=== PATIENT | female | born 1955 | race Caucasian/White ===

== ENCOUNTER → 2022-04-18 12:40 | Outpatient (REF) | payer OTHER, SELFPAY | LOC: HO.SL 12:40 | PROVIDERS: PCP Internal Medicine; Visit Provider Nurse Practitioner Family | DX: R06.83 Snoring (principal); R40.0 Somnolence | CPT/HCPCS: 95806 ==

== ENCOUNTER → 2022-10-09 13:53 | Outpatient (BNVA) | payer OTHER, SELFPAY | PROVIDERS: PCP Internal Medicine; Visit Provider Nurse Practitioner Family | DX: R41.3 Other amnesia (principal); R41.89 Other symptoms and signs involving cognitive functions and awareness; R53.83 Other fatigue ==

== ENCOUNTER → 2022-11-24 09:28 | Outpatient (BNVA) | payer OTHER, SELFPAY | PROVIDERS: PCP Internal Medicine; Visit Provider Nurse Practitioner Family | DX: R41.3 Other amnesia (principal); R41.89 Other symptoms and signs involving cognitive functions and awareness; R53.83 Other fatigue ==

== ENCOUNTER 2023-07-26 13:54 | Outpatient (AMB) | payer OTHER, SELFPAY ==
--- NOTE | 2023-07-26 13:57 | MHC.OFFVIS ---
Intake Vital Signs 07/26/23 14:03 Height 4 ft 10 in Weight 144 lb 2 oz BMI 30.1 BP 130/80 Blood Pressure Location Lt brachial Position Sitting Pulse 84 Pulse Source Pulse Oximeter Pulse Oximetry (%) 95 Oxygen Delivery Method Room Air Intake Visit Reasons: Follow up- Sleep/Memory - CONF Intake Note: Patient presents for f/u memory is getting worse and sleep has improve. Allergies No Known Allergies Allergy (Verified 07/26/23 14:01) HPI HPI Comments History of Present Illness Details 67 y/o female patient presents for follow up of memory loss and depression. Pt reports that she sleeps much better with magnesium 400 mg qHS. She does not get tensed during the night and sleeps about 8 hours and rested well. Pt feels memory declined and having difficulty concentrating, She keeps forgetting what the word she try to say. 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 Pt reports that citalopram 20 mg helped a lot to manage depression. She can force herself to do activity. She walks her dog daily and can do more physical activity.? [facility] Surgical History History of surgical removal of pilonidal cyst History of subtotal thyroidectomy History of 2 sections Family History Mother Diabetes Father Diabetes Maternal Grandmother Diabetes Blindness Macular ischemia Maternal Grandfather Diabetes Paternal Grandmother Diabetes Paternal Grandfather Diabetes Social History Household Members: Family Alcohol intake: current Alcohol intake frequency: holidays/special occasions only Patient Tobacco Use Status: Former Tobacco user Years Smoked: 40 e-Cigarette/Vaping Use: Currently Using Review of Systems Const All systems reviewed & are unremarkable except as noted in HPI and below ENT Reports Normal hearing present Neuro Reports Normal hearing present Physical Exam Vital Signs: Last Vital Signs Pulse 84 07/26/23 14:03 BP 130/80 07/26/23 14:03 Pulse Ox 95 07/26/23 14:03 Oxygen Delivery Method Room Air 07/26/23 14:03 BMI result Body Mass Index 30.1 Const General: cooperative and comfortable Nutritional Appearance: obese Orientation/consciousness: patient oriented x3 Resp Effort & Inspection: normal respiratory effort and able to speak in complete sentences Neuro General: patient oriented x3 and gait normal Cranial nerves: Yes Bilaterally intact EOM present, Yes Normal facial strength present, Yes Midline tongue present, Yes Symmetric palate elevation present, Yes Normal hearing present, Yes Ability to bilaterally rotate head present and Yes Ability to bilaterally elevate shoulders present Cognition (Neuro): normal cognition Gait exam (Neuro): Normal gait present Motor exam (neuro): 5/5 motor strength present throughout and Pronator motor function not present Psych Appearance: grossly normal Mental Status: mental status grossly normal Speech and movement: Normal speech and movement present Assessment & Plan Assessment & Plan (1) Depression: Code(s): F32.A - Depression, unspecified (2) Memory loss: Code(s): R41.3 - Other amnesia (3) Cognitive impairment: Code(s): R41.89 - Other symptoms and signs involving cognitive functions and awareness (4) Fatigue: Code(s): R53.83 - Other fatigue Plan Continue to take citalopram to 20 mg daily to manage depression. Continue magnesium 400 mg q HS to help to relieve tense and legs cramping. Encouraged patient to manage diet and increase physical activity to manage blood sugar. Continue to engaging in cognitive activity. Refer patient to neuropsychology evaluation. Orders: Referrals Neuropsychiatry Referral R41.3 - Other amnesia, R41.89 - Other symptoms and signs involving cognitive functions and awareness Medications: Changed From magnesium oxide 400 mg PO DAILY 30 days 30 tabs 4RF To magnesium oxide 400 mg PO DAILY 90 tabs 4RF 90 days From citalopram 20 mg PO DAILY 30 days 30 tabs 4RF To citalopram 20 mg PO DAILY 90 tabs 4RF 90 days From cholecalciferol (vitamin D3) 50 mcg PO DAILY 30 days 30 caps 2RF To cholecalciferol (vitamin D3) (Vitamin D3) 50 mcg PO DAILY 90 caps 4RF 90 days Coding Level of Care Code Est Pt Level 4 (60229) Diagnoses Depression F32.A Memory loss R41.3 Cognitive impairment R41.89 Fatigue R53.83
[2023-07-26 14:03] VITALS: BP 130/80; PULSE 84; O2SAT 95; BMI 30.1
== END 2023-07-26 14:35 | disposition home or self-care (01) ==
PROVIDERS: PCP Internal Medicine; Visit Provider Nurse Practitioner Family
DX: F32.A Depression, unspecified (principal); R41.3 Other amnesia; R41.89 Other symptoms and signs involving cognitive functions and awareness; R53.83 Other fatigue
CPT/HCPCS: 99214

== ENCOUNTER → 2023-07-26 13:54 | Outpatient (BNVA) | payer OTHER, SELFPAY | PROVIDERS: PCP Internal Medicine; Visit Provider Nurse Practitioner Family ==

== ENCOUNTER 2024-04-10 12:25 | Outpatient (AMB) | payer OTHER, SELFPAY ==
--- NOTE | 2024-04-10 12:30 | MHC.OFFVIS ---
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 Required: No Accompanied by: Self / Same As Patient Allergies No Known Allergies Allergy (Verified 04/10/24 12:32) Medication List - Last Reconciled 04/10/24 by Prabha Gonzales MD alendronate (Fosamax) 70 mg PO QWEEK aspirin 81 mg PO DAILY atenolol 25 mg PO DAILY blood sugar diagnostic (FreeStyle Lite Strips) As directed cholecalciferol (vitamin D3) (Vitamin D3) 50 mcg PO DAILY 90 days citalopram 20 mg PO DAILY 90 days magnesium oxide 400 mg PO DAILY 90 days metformin 1,000 mg PO DAILY simvastatin 20 mg PO BEDTIME tolterodine ER 4 mg PO DAILY HPI Comments Details: 68 y/o female patient presents for follow up of cognitive issues.she feels her memory is worse. 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 she forgets conversations , words etc. she sleeps good now. she has depression- does not have a therapist - on waiting list now. Pt reports that she sleeps much better with magnesium 400 mg qhs and feels rested when she wakes up. Pt reports that citalopram 20 mg helped a lot to manage depression. She walks her dog daily and can do more physical activity.? [facility] Medical History (Updated 04/10/24 @ 12:48 by Prabha Gonzales MD) Diabetes Surgical History History of surgical removal of pilonidal cyst History of subtotal thyroidectomy History of 2 sections Family History Mother Diabetes Father Diabetes Maternal Grandmother Diabetes Blindness Macular ischemia Maternal Grandfather Diabetes Paternal Grandmother Diabetes Paternal Grandfather Diabetes Social History Household Members: Family Alcohol intake: current Alcohol intake frequency: holidays/special occasions only Patient Tobacco Use Status: Former Tobacco user Years Smoked: 40 e-Cigarette/Vaping Use: Currently Using Review of Systems ENT Reports Normal hearing present Neuro Reports Normal hearing present Physical Exam Vital Signs: Last Vital Signs Pulse 64 04/10/24 12:33 BP 138/70 04/10/24 12:33 Pulse Ox 96 04/10/24 12:33 Oxygen Delivery Method Room Air 04/10/24 12:33 BMI result Body Mass Index 33.0 Const General: cooperative and comfortable Nutritional Appearance: obese Orientation/consciousness: patient oriented x3 Resp Effort & Inspection: normal respiratory effort and able to speak in complete sentences Neuro General: patient oriented x3 and gait normal Cranial nerves: Yes Bilaterally intact EOM present, Yes Normal facial strength present, Yes Midline tongue present, Yes Symmetric palate elevation present, Yes Normal hearing present, Yes Ability to bilaterally rotate head present and Yes Ability to bilaterally elevate shoulders present Cognition (Neuro): normal cognition Gait exam (Neuro): Normal gait present Motor exam (neuro): 5/5 motor strength present throughout and Pronator motor function not present Psych Appearance: grossly normal Mental Status: mental status grossly normal Speech and movement: Normal speech and movement present Orientation What is the (year) (season) (date) (day) (month)?: year, season, date, day and month Where are we (state) (county) (town or city) (hospital) (floor)?: state, county, town or city, hospital/clinic and floor Registration Name of 3 unrelated objects clearly and slowly, then ask patient to repeat all 3 of them. (1st repeat determines score. Make sure they can repeat all three): object 1, object 2 and object 3 Attention & Calculation (CHOOSE ONE) Spell WORLD backwards (DLROW): 5 letters Recall Ask patient to repeat the 3 items from question #3.: object 1 and object 3 Language Show patient a wristwatch & ask what it is. Repeat for pencil.: watch and pencil Ask the patient to repeat the phrase 'No ifs, ands, or buts' after you.: correct Ask the patient to 'take a piece of paper with their right hand' 'fold paper in half' 'place paper on floor': take paper in right hand, fold paper in half and place paper on floor Print the sentence 'CLOSE YOUR EYES' on a piece. If patient actually closes eyes then score.: followed written direction Give patient a blank piece of paper & ask to write a sentence. Score if it contains a noun & verb.: sentence contains subject and verb Ask patient to copy figure of intersecting pentagons exactly. Score if all 10 angles & 2 intersects are included.: all 10 angles present & 2 are intersected Score Score: 29 Assessment & Plan Assessment & Plan (1) Cognitive impairment: Comment: did well on MMSE today - likely related to mood Code(s): R41.89 - Other symptoms and signs involving cognitive functions and awareness Category: Medical (2) Depression: Code(s): F32.A - Depression, unspecified Category: Medical Qualifiers: Depression Type: other depression Qualified Code(s): F32.89 - Other specified depressive episodes Plan Increase citalopram to 30 mg daily to manage depression. Continue magnesium 400 mg q HS to help to relieve tense and legs cramping. Encouraged patient to manage diet and increase physical activity to manage blood sugar. Continue to engaging in cognitive activity. cognitive therapy Orders: Referrals Speech and Hearing Referral R41.89 - Other symptoms and signs involving cognitive functions and awareness Medications: Changed From citalopram 20 mg PO DAILY 90 days 90 tabs 4RF To citalopram 30 mg (1.5 x 20 mg) PO DAILY 90 days 135 tabs 4RF Coding Level of Care Code Est Pt Level 4 (32179) Complex EM visit Add On G2211 Diagnoses Cognitive impairment R41.89 Other depression F32.89 Depression Type: other depression
[2024-04-10 12:33] VITALS: BP 138/70; PULSE 64; O2SAT 96; BMI 33.0
== END 2024-04-10 12:50 | disposition home or self-care (01) ==
PROVIDERS: PCP Internal Medicine; Visit Provider Psychiatry & Neurology Neurology
DX: R41.89 Other symptoms and signs involving cognitive functions and awareness (principal); F32.89 Other specified depressive episodes
CPT/HCPCS: 99214

== ENCOUNTER → 2024-04-10 12:25 | Outpatient (BNVA) | payer OTHER, SELFPAY | PROVIDERS: PCP Internal Medicine; Visit Provider Psychiatry & Neurology Neurology ==

== ENCOUNTER 2024-11-19 12:45 | Outpatient (RCR) | payer OTHER, SELFPAY ==
--- NOTE | 2024-11-27 13:49 | MHC.SP.ADU ---
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 Gonzales from the Neurology and Sleep office for concerns of cognitive impairment and memory loss. Grace reports having issues with her memory which seem to be getting worse. Grace also reports frequently having trouble finding words and following directions, with occasional difficulty expressing her thoughts, problem solving, being understood by others, and maintaining topic of conversation. Grace reports she puts things down and forgets right away where she put them down and forgets conversations that have happened. 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 She says she forgets a patient?s date of or medical record number when switching from one screen to another on the computer. She also pulls a chart and forgets what she pulled it for. Grace does not believe she has ever had any brain imaging done. Grace also reports having trouble swallowing, which has progressively gotten worse over time. She reports episodes up to 3 times a week, feeling like food gets stuck in her throat. In one instance, she felt that she could not breathe and her daughter had to perform the Heimlich on her. Grace says she has not had any workup for her swallow. Grace completed some college. She denies ever having to repeat a grade or having any special education accommodations in school. Grace says she had a hearing test about 10 years ago and was told she did not have any hearing loss. Grace reports she has had trouble hearing things correctly and will hear a word that was not a word the person said. Grace lives alone in a private residence, is , and has 2 adult children which do not live in the home. Per Dr. Gonzales, Grace performed well on the Mini Mental State Examination (MMSE) Medical History: Other: Medical History (Updated 04/10/24 @ 12:48 by Prabha Gonzales MD) Diabetes Surgical History History of surgical removal of pilonidal cyst History of subtotal thyroidectomy History of 2 sections Assessment Tests of Cognition: RBANS Clinical Impression: Intact Observations: Grace?s cognitive linguistic skills were evaluated using the RBANS: The Repeatable Battery for the Assessment of Neuropsychological Status (RBANS-Updated Form A). The RBANS assesses aspects of cognitive memory, language, and attention skills. The RBANS is considered a screening battery for cognitive function used with adolescents and adults, ages 12 to 89 years. Composite domains assessed in this evaluation are: Immediate Memory, Visuospatial/Constructional, Language, Attention, and Delayed Memory. Assessed domains and their scores are summarized below: IMMEDIATE MEMORY: These subtests assess an individual?s ability to remember a small amount of information immediately after it is presented. Grace was presented with a list of 10 random words and was instructed to repeat back as many words as she could remember from the list (List Learning). She initially recalled 4 items from the list of 10. On each subsequent repetition, she recalled up to 6 items on the list, indicating that verbal repetition improves her recall. After listening to a spoken paragraph, Grace was instructed to re-tell the story with as much detail as she could remember (Story memory). She performed well on this task and was able to recall dates, locations, and other specific details. List Learning Total Score: 21 Scaled Score: 5 Percentile Rank: 5% Interpretation: Borderline Story Memory Total Score: 18 Scaled Score: 11 Percentile Rank: 63% Interpretation: Average Immediate Memory Index score: 87 Percentile Rank: 19% Interpretation: Low Average VISUOSPATIAL/CONSTRUCTIONAL: These subtests assess an individual?s visuospatial skills and perception of spatial relationships. Grace was first instructed to draw an accurate copy of a figure presented to her (Figure Copy) and then to identify lines that matched based on orientation and placement (Line Orientation). She exhibited no difficulty completing these tasks and denies any visual deficits. Figure Copy Total Score: 20 Scaled Score: 14 Percentile Rank: 91% Interpretation: Superior Line Orientation Total Score: 17 Percentile Group: 51-75 Interpretation: Average Visuospatial/Constructional Index score: 112 Percentile Rank: 79% Interpretation: High Average LANGUAGE: These subtests assess an individual?s word retrieval skills. Grace correctly named line images in 9 out of 10 trials during a confrontational naming task (Picture Naming). No hesitancies or paraphasias were observed with confrontational naming and throughout conversational speech. She did not name target item ?clothespin,? however, was able to describe its function, stating, ?You use it to hang clothes with it.? Grace named 13 relevant items in a given category in 60 seconds (Semantic Fluency) with just 1 repeated word. Picture Naming Total Score: 9 Percentile Group: 17-25 Interpretation: Low Average Semantic Fluency Total Score: 13 Scaled Score: 4 Percentile Rank: 2% Interpretation: Borderline Language Index score: 85 Percentile Rank: 16% Interpretation: Low Average ATTENTION: These subtests assess an individual?s capacity to remember and manipulate both visually and orally presented information in short-term memory storage. Grace was first instructed to repeat back number series that were between 2-9 digits long (Digit Span). She recalled up to 9 digits at a time without error, demonstrating superior performance on this subtest. Grace was also instructed to code markings with numbers (Coding). She coded 36 markers without error. Digit Span Total Score: 16 Scaled Score: 16 Percentile Rank: 98% Interpretation: Very Superior Coding Total Score: 36 Scaled Score: 7 Percentile Rank: 16% Interpretation: Low Average Attention Index score: 109 Percentile Rank: 73% Interpretation: Average DELAYED MEMORY: These subtests assess an individual?s retrieval of information from long-term memory. Grace was able to recall 4 out of 10 unrelated words in a list after a short time delay (List Recall/List Recognition). She recognized all words from the list when asked yes/no questions (i.e. ?Was ?market? on the list??). She did recall 10 out of 12 details from a story as well and redrew from memory a copy of the figure presented to her at the beginning of the testing period (Figure Recall), with her copy missing just one component. List Recall Total Score: 4 Percentile Group: 26-50 Interpretation: Average List Recognition Total Score: 20 Percentile Group: 51-75 Interpretation: Average Story Recall Total Score: 10 Scaled Score: 11 Percentile Rank: 63% Interpretation: Average Figure Recall Total Score: 18 Scaled Score: 14 Percentile Rank: 91% Interpretation: Superior Delayed Memory Index Score: 106 Percentile Rank: 66% Interpretation: Average Sum of Index Scores: 499 Total Scale: 99 Percentile: 47% Interpretation: Average Bigg Dozier (1998). Repeatable Battery for the Assessment of Neuropsychological Status [Manual]. [place]: Debbie. Impressions and Recommendations Summary: Today Grace demonstrated average performance on cognitive linguistic screening measures, which does not indicate further speech intervention at this time. Grace presented with relative strengths and superior performance on subtests measuring her attention and visuospatial skills. She was able to recall words from a list and re-tell a story after several minutes had gone by. No word finding deficit was apparent within conversation and she recalled 9/10 words on confrontational naming. Recommend continue workup with Neuropsychology/Psychiatry related to patient?s concerns of forgetfulness if it was not done so already. Patient today reported having intermittent difficulty swallowing, thus is recommended further assessment with a modified barium swallow study (MBSS), for which she will need a referral. It was a pleasure meeting and working with Grace. Please do not hesitate to contact the [facility] with any questions related to the content of this report or if we can be of further assistance in her care. Recommendation for Speech Therapy: NA:Typical Evaluation Modified Barium Swallow Study - Outpatient At this time, further speech intervention is not warranted related to cognition. Patient does report difficulty swallowing and is recommended further assessment with a modified barium swallow study (MBSS). 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
== END 2024-12-08 13:44 | disposition home or self-care (01) ==
LOC: HO.SH 12:45
PROVIDERS: PCP Internal Medicine; Visit Provider Psychiatry & Neurology Neurology
DX: R41.89 Other symptoms and signs involving cognitive functions and awareness (principal)
CPT/HCPCS: 96125

== ENCOUNTER 2024-12-23 08:56 | Outpatient (AMB) | payer OTHER, SELFPAY ==
--- NOTE | 2024-12-23 08:57 | MHC.OFFVIS ---
Intake Visit Reasons: New tremors - follow up ([phone]) Intake Note: Patient presents for follow up tremors. speech therapy consult 11/27/24 Allergies No Known Allergies Allergy (Verified 12/23/24 08:57) Medication List - Last Reconciled 12/23/24 by Prabha Gonzales MD alendronate (Fosamax) 70 mg PO QWEEK aspirin 81 mg PO DAILY atenolol 25 mg PO DAILY blood sugar diagnostic (FreeStyle Lite Strips) As directed bupropion HCl SR mg PO cholecalciferol (vitamin D3) (Vitamin D3) 50 mcg PO DAILY 90 days citalopram 30 mg (1.5 x 20 mg) PO DAILY 90 days magnesium oxide 400 mg PO DAILY 90 days metformin 1,000 mg PO DAILY simvastatin 20 mg PO BEDTIME tolterodine ER 4 mg PO DAILY HPI Comments Details: 69 y/o female patient calls for follow up of cognitive issues.1 week ago she started noticing episodically tremors in her hands R>L and some head tremors. yesterday she had frequent episodes - few seconds to whole minute. She was recently started on Buproprion XR 150 mg qd she missed her psychology appointments - so she was discharged from [facility] . she feels her memory is worse. 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 she forgets conversations , words etc. she sleeps good now. Pt reports that she sleeps much better with magnesium 400 mg qhs and feels rested when she wakes up. Pt reports that citalopram 30 mg helped a lot to manage depression. She walks her dog daily and can do more physical activity.? [facility] Medical History (Updated 12/23/24 @ 09:20 by Prabha Gonzales MD) Coarse tremors Diabetes Surgical History History of surgical removal of pilonidal cyst History of subtotal thyroidectomy History of 2 sections Family History Mother Diabetes Father Diabetes Maternal Grandmother Diabetes Blindness Macular ischemia Maternal Grandfather Diabetes Paternal Grandmother Diabetes Paternal Grandfather Diabetes Social History Household Members: Family Alcohol intake: current Alcohol intake frequency: holidays/special occasions only Patient Tobacco Use Status: Former Tobacco user Years Smoked: 40 e-Cigarette/Vaping Use: Currently Using Physical Exam Const Other: Normal speech ANxious General: cooperative Orientation/consciousness: patient oriented x3 Neuro General: patient oriented x3 Telehealth Telehealth Telehealth Platform: Telephone Location of provider rendering services: practice address Location of patient: address on file Patient Identification confirmed using: Name, : Yes Telehealth method: voice only Patient verbally consented to treatment: Yes Patient verbally consented to billing insurance company: Yes Patient informed of any privacy concerns related to visit: Yes Assessment & Plan Assessment & Plan (1) Coarse tremors: Code(s): G25.2 - Other specified forms of tremor Category: Medical (2) Cognitive impairment: Comment: did well on MMSE today - likely related to mood Code(s): R41.89 - Other symptoms and signs involving cognitive functions and awareness Category: Medical Plan Tremors are likely related to mood and Buproprion Will monitor clinically Coding Level of Care Code Tele Est Pt Level 4 (79997) Complex EM visit Add On G2211 Diagnoses Coarse tremors G25.2 Cognitive impairment R41.89
--- OUTSIDE RECORDS SUMMARY | 2024-12-23 09:23 | XMS_ITS | Clinical Summary ---
Author Organization [place] [address] [facility] Building Address [facility] [place] [address] Phone Care Team Providers Care Bone Char Puller Name Role Phone Hillary Hays MD Primary Care Provider [phone] Allergies Active Allergy Reactions Criticality Noted Date Comments Celecoxib Diarrhea Low 11/26/2024 TOLERATES IBUPROFEN Other 09/28/2016 Seasonal allergies Medications alendronate (FOSAMAX) 70 mg tablet Take 1 Tablet by mouth every 7 days. 10/11/19 24 Active aspirin 81 mg EC tablet Take 81 mg by mouth daily. Active carboxymethylc ellulose sodium (LUBRICANT EYE DROPS OPHT) apply to the eye. Active citalopram (CeleXA) 20 mg tablet 01/09/20 23 Active FREESTYLE LANCETS MISC USE TO TEST BLOOD SUGAR TWICE A DAY 10/11/19 24 Active blood sugar diagnostic (FreeStyle Lite Strips) test strip Apply 1 Strip topically 2 times daily. Use to test blood sugar 10/11/19 24 Active magnesium oxide (MAG-OX) 400 mg (241.3 elemental magnesium) tablet Take 1 tablet (400 mg total) by mouth 1 (one) time each day. 90 tablet 1 07/08/19 25 Active fluticasone propionate (FLONASE) 50 mcg/actuation nasal spray Administer 1 spray into each nostril 1 (one) time each day. Shake gently. Before first use, prime pump. After use, clean tip and replace cap. 16 g 1 07/08/19 25 Active tolterodine LA (DETROL LA) 4 mg 24 hr capsule Take 1 Capsule by mouth daily. 90 capsule 09/02/19 25 Active simvastatin (ZOCOR) 20 mg tablet Take 1 tablet (20 mg total) by mouth at bedtime. at bedtime. 30 tablet 5 10/02/19 25 Active atenoloL (TENORMIN) 25 mg tablet Take 1 tablet (25 mg total) by mouth 1 (one) time each day. 90 tablet 1 10/02/19 25 Active famotidine (PEPCID) 20 mg tablet Take 1 Tablet by mouth 2 times daily as needed for Heartburn. 60 tablet 11 10/29/19 25 Active buPROPion (ZYBAN) 150 mg 12 hr tabletIndicati ons:Tobacco use Take 1 tablet (150 mg total) by mouth 2 (two) times a day. Do not crush, chew, or split. TAKE 1 TABLET ONCE A DAY FOR ONE WEEK, AND THEN 2 TABLETS PER DAY. 60 each 2 11/27/19 25 Active metFORMIN (GLUCOPHAGE) 500 mg tablet Take 1 tablet (500 mg total) by mouth 2 (two) times a day with meals. 60 tablet 11/28/19 25 Active cetirizine (ZyrTEC) 10 mg tablet TAKE ONE TABLET BY MOUTH AT BEDTIME 30 tablet 2 12/12/19 25 Active metFORMIN (GLUCOPHAGE) 500 mg tablet Take 1 tablet (500 mg total) by mouth 2 (two) times a day with meals. 60 tablet 08/08/19 25 025 Discontinued(Re order) cetirizine (ZyrTEC) 10 mg tablet Take 1 tablet (10 mg total) by mouth at bedtime. 30 tablet 08/13/19 25 025 Discontinued celecoxib (CeleBREX) 100 mg capsule Take 1 capsule (100 mg total) by mouth 2 (two) times a day. 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 (CMS/HCC V24) 07/26/2022 Osteoporosis 07/05/2021 Overview (11/25/2024): Bone density 07/04/21 History of subtotal thyroidectomy 05/13/2021 Overview (06/06/2024): Benign tumor Essential hypertension 12/08/2015 Hyperlipidemia 04/21/2014 Palpitation 04/21/2014 Overview (06/06/2024): Pervious pcp [facility] Gastritis 06/03/2013 Overview (06/06/2024): 05/14-dr amaris go gi nonspecific gastritis DM2 (diabetes mellitus, type 2) (CMS/HCC V24, CM S/HCC V28) 04/08/2013 Encounters Date Type Department Care Team Description 12/12/2024 Telephone Internal Medicine - [address] [place] [address] Hillary Hays MD Letter for School/Work 11/26/2024 1:00 PM EDT Office Visit Orthopedic Surgery [facility] [address] [facility] [address] [place] [phone] Shen Marx MD Primary osteoarthritis of right knee (Primary Dx); Primary osteoarthritis of left knee; Tobacco use; Poor dentition 11/13/2024 1:30 PM EDT Office Visit Orthopedic [facility] [address] [facility] [address] [place] [phone] Mona Rhodes MD Arthritis of right knee (Primary Dx) from Last 3 Months Immunizations Name Administration Dates Next Due Hepatitis B (Irixjod-H-Pojog , Recombivax HB-Adult) 19yo and older 05/10/2016,12/09/2015,11/08/2015 Influenza Quadravalent, MDCK , 0.5ml, preservative free (Flucelvax) 6mo and older 05/13/2021 Influenza trivalent, 0.5mL ( Fluzone High-dose) 65yo and older 04/11/2024 Influenza trivalent, 0.5mL, preservative free (Fluarix; FluLaval; Fluzone) ages 6mo and older (Afluria) 3 years and older 04/30/2015,04/21/2014,07/10/2013 Moderna SARS-CoV-2 COVID-19, mRNA, LNP-S, preservative free 09/15/2021,06/03/2021 PPD Test 12/20/2022,11/08/2015,05/05/2015 Pneumococcal polysaccharide 23 valent (Pneumovax 23) 2yo and older 04/21/2014 Tdap Tetanus diptheria acell ular pertussis (Boostrix; Adacel) 7yo and older 02/07/2022,08/21/2014 Surgical History Surgery Date Site/Laterality Comments OTHER SURGICAL HISTORY PROCEDURE: HISTORICAL SUBTOTAL THYROIDECTOMY SECTION PROCEDURE: HISTORICAL ; COMMENT: x2 OTHER SURGICAL HISTORY PROCEDURE: [place] EXCISION PILONIDAL CYST/SINUS COMPLICATED; COMMENT: age 18 COLONOSCOPY 09/07/2021 PROCEDURE: HISTORICAL COLONOSCOPY; COMMENT: 8 polyps Medical History Medical History Date Comments Diabetes mellitus type II, c ontrolled ([facility]24, [facility] V28) DX:Diabetes mellitus type I I, controlled ([facility]) Macular degeneration DX:Macular degeneration Esophageal reflux DX:Esophageal reflux Essential hypertension 12/08/2015 DX:Essent ial hypertension Osteoporosis 07/05/2021 DX:Osteoporosis; COMMENT: Bone density 07/04/21 Ankle fracture DX:Ankle fractur e; COMMENT: right no surgery needed Stomach growling DX:Stomach grow ling Essential hypertension 12/08/2015 Family History Medical History Relation Name Comments Other: other Brother x3 1 passed aids Diabetes Father Diabetes Maternal Grandfather Blindness Maternal Grandmother Diabetes Maternal Grandmother Heart attack Maternal Grandmother Diabetes Mother Diabetes Paternal Grandfather Diabetes Paternal Grandmother Other cancer Sister x3 uterine Other: fibroid Sister x3 uterine Uterine cancer Sister x3 Breast cancer Neg Hx Cataracts Neg Hx Glaucoma Neg Hx Macular degeneration Neg Hx Strabismus Neg Hx Relation Name Status Comments Brother x3 1 passed Alive 3,one of a ids.estranged from other 2 Daughter Alive Father Maternal Grandfather Maternal Grandmother Mother Paternal Grandfather Paternal Grandmother Sister x3 Alive 3,healthy Son Alive Social History Tobacco Use Types Packs/Day Years Used Date Smoking Tobacco: Every Day Cigarettes Smokeless Tobacco: Never Tobacco Cessation:Ready to Q uit: Not Asked; Counseling Given: Not Answered Alcohol Use Standard Drinks/Week Comments Yes 0 (1 standard drink = 0.6 oz pur e alcohol) Comments No Sex and Gender Information Value Date Recorded Sex Assigned at Not on file Legal Sex Female 3:33 AM EST Gender Identity Not on file Sexual Orientation Not on file Obstetrics History Last Filed Vital Signs Vital Sign Reading Time Taken Comments Blood Pressure 114/83 07/08/2024 1:10 PM EST Pulse 70 07/08/2024 1:10 PM EST Temperature - - Respiratory Rate - - Oxygen Saturation - - Inhaled Oxygen Concentration - - Weight 71.7 kg (158 lb) 11/26/2024 12:44 PM EDT Height 147.3 cm (4' 9.99 ) 11/26/2024 12:44 PM E DT Body Mass Index 33.03 11/26/2024 12:44 PM EDT Plan of Treatment Upcoming Encounters Date Type Department Care Team (Late st Contact Info) Description 01/08/2025 1:15 PM EDT Office Visit Internal Medicine - [address] [phone] Hillary Hays MD [address] [place] [phone] Health Maintenance Due Date Last Done Comments Diabetes: Annual Foot Exam 1966 Diabetes: Annual Retina Eye Exam 1966 Zoster Vaccines (1 of 2) 2006 Pneumococcal Vaccine: 50+ Years (2 of 2 - PCV) 04/21/2015 04/21/2014 Depression Screening 06/11/2022 Falls Risk Assessment 06/11/2022 Social Influencers of Health Screening 06/11/2022 Lung Cancer Screening (Low Dose CT) 02/24/2024 02/23/2023 COVID-19 Vaccine ( season) 2024 09/15/2021, 06/03/2021 Diabetes: Blood Sugar Control Test (HGBA1C) 04/11/2024 10/11/2023 Breast Cancer Screening 07/06/2024 07/06/2022, 07/04 Diabetes: Annual Urine Albumin-Creatinine Ratio (uACR) 10/10/2024 10/11/2023 Diabetes: Annual GFR (Glomerular Filtration Rate) 10/10/2024 10/11/2023 Hypertension/CHF/CAD Annual BMP Blood Test 10/10/2024 10/11/2023 Cholesterol Screening (Lipid Panel) 10/10/2028 10/11/2023 Osteoporosis Screening (Bone Density Screening) 07/04/2031 07/04/2021 Colorectal Cancer Screening: Colonoscopy 09/08/2031 09/07/2021 RSV Immunization Adult Patients (1 - 1-dose 75+ series) 09/25/2031 DTaP,Tdap,and Td Vaccines (3 - Td or Tdap) 02/08/2032 02/07/2022, 08/21/2014 Hepatitis C Screening Completed 06/04/2014 Hepatitis B Vaccines Completed 05/10/2016, 12/09/2015, 11/08/2015 Influenza Vaccine Completed 04/11/2024, , 05/13/2021, Additional history exists HIB Vaccines Aged Out No longer eligi ble based on patient's age to complete this topic HPV Vaccines Aged Out No longer eligi ble based on patient's age to complete this topic Hepatitis A Vaccines Aged Out No long er eligible based on patient's age to complete this topic IPV Vaccines Aged Out No longer eligi ble based on patient's age to complete this topic MMR Vaccines Aged Out No longer eligi ble based on patient's age to complete this topic Meningococcal ACWY Vaccine Aged Out N o longer eligible based on patient's age to complete this topic Meningococcal B Vaccine Aged Out No l onger eligible based on patient's age to complete this topic RSV Immunization Patients Under 20 months Aged Out No longer eligible based on patient's age to complete this topic Varicella Vaccines Aged Out No longer eligible based on patient's age to complete this topic Procedures Procedure Name Priority Date/Time Associated Diagnosis Comments HM URINE ALBUMIN CREATININE RATIO Routine 10/11/2023 ANNUAL BMP BLOOD TEST Routine 10/11/2023 HEMOGLOBIN A1C Routine 10/11/2023 LIPID PANEL Routine 10/11/2023 CT LUNG SCREENING LOW DOSE Routine 02/23/2023 6:24 AM EDT Personal history of nicotine dependence [facility] SCREENING DIGITAL Routine 07/06/2022 3:10 PM EST Encounter for screening mammogram for malignant neoplasm of breast COLONOSCOPY Routine 09/07/2021 [facility] DEXA AXIAL SKELETON Routine 07/04/2021 12:00 PM EST Encounter for screening for osteoporosis HEPATITIS C SCREENING Routine 06/04/2014 from Last 3 Months or Most Recently Relevant to Health Maintenance Results * Urine Albumin Creatinine Ratio (10/11/2023) Pathologist [facility] Urine Albumin Creatinine Ratio abstracted [facility] Provider HEALTH MAINTENANCE Final Result * Annual BMP Blood Test (10/11/2023) Pathologist [facility] Annual BMP Blood Test abstracted [facility] Provider HEALTH MAINTENANCE Final Result * Hemoglobin A1c (10/11/2023) Pathologist [facility] Hemoglobin A1C 6.1 <=6.5 % Blood Venous blood specimen / Unknown Result [facility] Provider LAB BLOOD ORDERABLES Lilliam l Result * Lipid panel (10/11/2023) [facility] LDL/HDL Ratio 2 0 - 4 Triglycerides 77 0 - 150 mg/dL Cholesterol 187 0 - 200 mg/dL HDL 97 >=40 mg/dL LDL Cholesterol 75 0 - 100 mg/dL Blood Venous blood specimen / Unknown [facility] Provider LAB BLOOD ORDERABLES Lilliam l Result * CT LUNG SCREENING LOW DOSE (02/23/2023 6:24 AM EDT) Anatomical Region Laterality Modality Computed Tomogra phy 02/20/2023 3:31 PM EDT Narrative 02/23/2023 6:24 AM EDT [facility] Diagnostic Imaging Department [address] [place] [address] Patient: YOVANIKymberlyFARHANA /Age/Sex: 1955 - 67 - F Unit#: [id number] Location/Status: SPDICATLS/REG CLI Mnemonic/Ordering Site: [facility] [place] [place] Ordering Physician: JENNIFER VAZQUEZ MD CT Lung Screening Low Dose - 02/20/23 - 1537 Report Status:Signed Indication: Greater than 20 total pack-year smoking history, asymptomatic current smoker Technique: Low-dose CT scan of the chest obtained as a lung cancer screening study. Multiplanar reformatted images were obtained. Dose reduction technique: ASIR (Adaptive statistical iterative reconstruction) and/or AEC (automated exposure control) COMPARISON: No prior imaging available for comparison. FINDINGS: Lack of intravenous contrast limits evaluation of the vivian, vascular structures and visualized abdominal viscera. Lungs/airways: Trachea and central airways are patent. Bronchial wall thickening. Mild emphysematous changes. Scattered sub-5 mm pulmonary nodules. For example: 3 mm right upper lobe (image 45) 2 mm right upper lobe (image 68) Base of the neck, mediastinum, heart, chest wall, vessels: The right thyroid gland is asymmetrically enlarged in comparison to the left with a calcified right thyroid nodule measuring 10 mm, similar dating back to cervical spine CT from 2018. No enlarged mediastinal lymphadenopathy. Calcified mediastinal lymph node and superior right hilar lymph node which may represent stigmata of prior granulomatous disease. Atherosclerotic calcification of the thoracic aorta and coronary arteries. Right breast calcifications. No axillary lymphadenopathy. Upper abdomen: Calcifications in the spleen which may represent stigmata of prior granulomatous disease. Bones/soft tissues: Degenerative changes Impression: No suspicious pulmonary nodules Lung RADS 2: Benign Appearance or Behavior - Continue annual screening with LDCT in 12 months. Dictating Physician: ANA AWAD MD Electronically Signed by: ANA AWAD MD Dic Date/Time: 02/23/23618 Sign date/Time: 02/23/23623 Procedure Note Ana Awad MD - 08/07/2023 [facility] Diagnostic Imaging Department [address] [place] [address] Patient: FARHANA MCDANIEL /Age/Sex: 1955 - 67 - F Unit#: [id number] [facility]Ordering [facility] Ordering Physician: JENNIFER VAZQUEZ MD CT Lung Screening Low Dose - 02/20/23 - 1537 Report Status:Signed Indication: Greater than 20 total pack-year smoking history,asymptomatic current smoker Technique: Low-dose CT scan of the chest obtained as a lung cancerscreening study. Multiplanar reformatted images were obtained. Dose reductiontechnique: ASIR (Adaptive statistical iterative reconstruction) and/or AEC(automated exposure control) COMPARISON: No prior imaging available for comparison. FINDINGS: Lack of intravenous contrast limits evaluation of the vivian,vascular structures and visualized abdominal viscera. Lungs/airways: Trachea and central airways are patent. Bronchial wall thickening. Mild emphysematous changes. Scattered sub-5 mm pulmonary nodules. For example: 3 mm right upper lobe (image 45) 2 mm right upper lobe (image 68) Base of the neck, mediastinum, heart, chest wall, vessels: The rightthyroid gland is asymmetrically enlarged in comparison to the left with acalcified right thyroid nodule measuring 10 mm, similar dating back to cervicalspine CT from 2018. No enlarged mediastinal lymphadenopathy. Calcifiedmediastinal lymph node and superior right hilar lymph node which may representstigmata of prior granulomatous disease. Atherosclerotic calcification of thethoracic aorta and coronary arteries. Right breast calcifications. No axillary lymphadenopathy. Upper abdomen: Calcifications in the spleen which may represent stigmataof prior granulomatous disease. Bones/soft tissues: Degenerative changes Impression: No suspicious pulmonary nodules Lung RADS 2: Benign Appearance or Behavior - Continue annual screeningwith LDCT in 12 months. Dictating Physician: ANA AWAD MD Electronically Signed by: ANA AWAD MD Dic Date/Time: 02/23/23618 Sign date/Time: 02/23/23623 Jennifer Vazquez MD IMG CT PROCEDURES Final Result * DILIP SCREENING DIGITAL (07/06/2022 3:10 PM EST) Anatomical Region Laterality Modality Mammography 07/06/2022 11:1 5 AM EST Narrative 07/06/2022 3:10 PM EST [facility] Diagnostic Imaging Department [address] [place], [place] [id number] Patient: FARHANA MCDANIEL /Age/Sex: 1955 - 66 - F Unit#: [id number] Location/Status: SPDIMAM/REG CLI Mnemonic/Ordering Site: [facility] Ordering Physician: HILLARY HAYS MD [facility] Screening Digital - 07/06/22 - EXAM: [facility] Screening Digital EXAM DATE AND TIME: 07/06/2022 11:48 AM HISTORY: Screening. COMPARISON: 07/04/21, 02/11/16, 12/14/14 TECHNIQUE: CC and MLO views of both breasts were obtained using full field digital mammography. Bilateral digital breast tomosynthesis was performed in the MLO projection. Computer aided detection with [employer] 7.2-H and [employer] 3D 3.1 was employed. TISSUE DENSITY: b. There are scattered areas of fibroglandular density. FINDINGS: No suspicious masses, grouped microcalcifications, or areas of architectural distortion are seen. There are rare benign calcifications, unchanged. The skin and vascularity are unremarkable. IMPRESSION: Stable mammographic appearance of the breasts. No evidence of malignancy is seen. A negative mammogram in the presence of a clinically suspicious palpable abnormality does not preclude the possibility of malignancy or alter the indications for biopsy. BI-RADS: Category 2: Benign RECOMMENDATION(S): 1: Routine screening mammogram BILATERAL in 1 year. 69046, 12159 3342F, 7025F Dictating Physician: NAFISA BROCK MD Electronically Signed by: NAFISA BROCK MD Dic Date/Time: 07/06/22 1510 Sign date/Time: 07/06/22 1510 Procedure Note Nafisa Brock MD - 08/03/2023 [facility] Diagnostic Imaging Department [address] [place] [address] Patient: FARHANA MCDANIEL /Age/Sex: 1955 - 66 - F Unit#: [id number] Location/Status: SPDIMAM/REG CLI Mnemonic/Ordering Site: [facility] Ordering Physician: HILLARY HAYS MD [facility] Screening Digital - 07/06/22 - EXAM: [facility] Screening Digital EXAM DATE AND TIME: 07/06/2022 11:48 AM HISTORY: Screening. COMPARISON: 07/04/21, 02/11/16, 12/14/14 TECHNIQUE: CC and MLO views of both breasts were obtained using fullfield digital mammography. Bilateral digital breast tomosynthesis was performedin the MLO projection. Computer aided detection with [employer] 7.2-H and[employer] AI 3D 3.1 was employed. TISSUE DENSITY: b. There are scattered areas of fibroglandular density. FINDINGS: No suspicious masses, grouped microcalcifications, or areas ofarchitectural distortion are seen. There are rare benign calcifications, unchanged. Theskin and vascularity are unremarkable. IMPRESSION: Stable mammographic appearance of the breasts. No evidence of malignancyis seen. A negative mammogram in the presence of a clinically suspicious palpable abnormality does not preclude the possibility of malignancy or alter the indications for biopsy. BI-RADS: Category 2: Benign RECOMMENDATION(S): 1: Routine screening mammogram BILATERAL in 1 year. 97111, 52742 3342F, 7025F Dictating Physician: NAFISA BROCK MD Electronically Signed by: NAFISA BROCK MD Dic Date/Time: 07/06/22 1510 Sign date/Time: 07/06/22 151 Hillary Hays MD IMG BI PROCEDURES Final Result * Colonoscopy (09/07/2021) Colonoscopy no interpretation , abstracted Anatomical Region Laterality Modality Other us Historical Provider HEALTH MAINTENANCE Final Result * DILIP DEXA AXIAL SKELETON (07/04/2021 12:00 PM EST) Anatomical Region Laterality Modality Mammography 07/04/2021 11:0 4 AM EST Narrative 07/04/2021 12:00 PM EST [facility] Diagnostic Imaging Department [address] [place] [address] Patient: FARHANA MCDANIEL /Age/Sex: 1955 - 65 - F Unit#: [id number] [facility] Ordering Physician: PEDRITO OZUNA Dilip Dexa Axial Skeleton - 07/04/214 HISTORY: The patient is a 65-year-old postmenopausal female with clinical concern for metabolic bone disease. FINDINGS: Dual energy x-ray absorptiometry of the lumbar spine and femurs is performed. The mean bone mineral density at L2-3 is 0.880 gm/cm2 which is 73% of that of young normals and 84% of that of age matched controls. This yields a T- score of -2.7 and a Z-score of -1.4 which is diagnostic of osteoporosis. The mean bone mineral density of the femurs bilaterally is 0.811 gm/cm2 which is 81% of that of young normals and 92% of that of age matched controls. This yields a T-score of -1.6 and a Z-score of -0.6 which is diagnostic of osteopenia. IMPRESSION: 1. Osteoporosis. 2. FRAX analysis yields a 10-year probability of major osteoporotic fracture of 19.5% and a 10-year probability of hip fracture of 5.6%. Code 72720 Dictating Physician: MARY AMBROSE MD Electronically Signed by: MARY AMBROSE MD Dic Date/Time: 07/04/21 1159 Sign date/Time: 07/04/21 1200 Procedure Note Mary Ambrose MD - 06/21/2022 [facility] Diagnostic Imaging Department [address] [place] [address] Patient: FARHANA MCDANIEL./Age/Sex: 1955 - 65 - F Unit#: [id number] Location/Status: [facility] Mnemonic/Ordering Site: [facility] Ordering Physician: PEDRITO OZUNA [facility] Dexa Axial Skeleton - 07/04/21 - 9141 HISTORY: The patient is a 65-year-old postmenopausal female withclinical concern for metabolic bone disease. FINDINGS: Dual energy x-ray absorptiometry of the lumbar spine and femursis performed. The mean bone mineral density at L2-3 is 0.880 gm/cm2 which is73% of that of young normals and 84% of that of age matched controls. This yieldsa T- score of -2.7 and a Z-score of -1.4 which is diagnostic of osteoporosis. The mean bone mineral density of the femurs bilaterally is 0.811 gm/sh3llozc is 81% of that of young normals and 92% of that of age matched controls.This yields a T-score of -1.6 and a Z-score of -0.6 which is diagnostic of osteopenia. IMPRESSION: 1. Osteoporosis. 2. FRAX analysis yields a 10-year probability of major osteoporoticfracture of 19.5% and a 10-year probability of hip fracture of 5.6%. Code 34996 Dictating Physician: MARY AMBROSE MD Electronically Signed by: MARY AMBROSE MD Dic Date/Time: 07/04/21 1159 Sign date/Time: 07/04/21 1200 Pedrito MONTOYA IMG BI PROCEDURES Final Result * Hepatitis C Screening (06/04/2014) Hepatitis C Screening abstracted Historical Provider HEALTH MAINTENANCE Final Result from Last 3 Months or Most Recently Relevant to Health Maintenance Insurance [facility] Care Teams Bone Char Puller Relationship Specialty Start Date End Date Hillary Hays MD [address] [place] [phone] PCP - General Internal Medicine 02/22/15
== END 2024-12-23 09:36 | disposition home or self-care (01) ==
PROVIDERS: PCP Internal Medicine; Visit Provider Psychiatry & Neurology Neurology
DX: G25.2 Other specified forms of tremor (principal); R41.89 Other symptoms and signs involving cognitive functions and awareness
CPT/HCPCS: 99214; G2211

== ENCOUNTER 2024-12-24 10:17 | Outpatient (REF) | payer OTHER, SELFPAY ==
--- NOTE | ~2024-12-24 | FL_ITS ---
EXAMINATION: Modified Barium Swallow CLINICAL INFORMATION: Dysphagia. COMPARISON: None. TECHNIQUE: Modified barium swallow was performed under lateral fluoroscopy with patient in standing position. Barium mixed with solids and liquids of different consistencies was administered by the speech pathologist. Examination was recorded in the fluoroscopy suite. FINDINGS: No evidence of laryngeal penetration, glottic or subglottic aspiration on any consistency. FLUOROSCOPY TIME: 1 minute 31 seconds Number of Spot Images: N/A DOSE AREA PRODUCT: 781.3 uGy-m2 (microgray-meter squared) FL/FL Modified Barium Swallow IMPRESSION: No evidence of laryngeal penetration, glottic or subglottic aspiration on any consistency. Refer to the full speech therapy report for further detail. Electronically signed by: Silver Ramachandran MD 12/24/2024 10:58 AM EDT
--- OUTSIDE RECORDS SUMMARY | 2024-12-24 11:58 | XMS_ITS | Clinical Summary ---
Author Organization [place] [address] [address] [facility] Building Address [facility] [place] [address] Phone Care Team Providers Care Socket Puller Name Role Phone Hillary Hays MD Primary Care Provider [phone] Allergies Active Allergy Reactions Criticality Noted Date [...] Telephone Internal Medicine - [address] [place] [address] Hillary Hays MD Letter for School/Work 11/26/2024 1:00 PM EDT Office Visit Orthopedic Surgery [facility] [address] [facility] [address] [place] [phone] Shen Marx MD Primary osteoarthritis of right knee (Primary Dx); Primary osteoarthritis of left knee; Tobacco use; Poor dentition 11/13/2024 1:30 PM EDT Office Visit Orthopedic [facility] [address] [facility] [address] [place] [phone] Mona Rhodes MD Arthritis of right knee (Primary Dx) from Last 3 Months Immunizations Name Administration Dates Next Due Hepatitis B (Qfmrocv-E-Hikon , Recombivax HB-Adult) 19yo and older 05/10/2016,12/09/2015,11/08/2015 [...] ; COMMENT: x2 OTHER SURGICAL HISTORY PROCEDURE: NC EXCISION PILONIDAL CYST/SINUS COMPLICATED; COMMENT: age 18 COLONOSCOPY 09/07/2021 PROCEDURE: HISTORICAL COLONOSCOPY; COMMENT: 8 polyps Medical History Medical History Date Comments Diabetes mellitus type II, c ontrolled ([facility] V24, [facility] [place] DX:Diabetes mellitus type I I, controlled ([facility]) Macular degeneration DX:Macular degeneration Esophageal reflux DX:Esophageal [...] PM EDT Office Visit Internal Medicine - [address] [phone] Hillary Hays MD [address] [place] [id number] Health Maintenance Due Date Last Done Comments [...] Procedure Name Priority Date/Time Associated Diagnosis Comments EXTERNAL CT REPORT 12/24/2024 URINE ALBUMIN CREATININE RATIO Routine 10/11/2023 ANNUAL BMP BLOOD TEST Routine 10/11/2023 HEMOGLOBIN A1C Routine 10/11/2023 LIPID PANEL Routine 10/11/2023 CT LUNG SCREENING LOW DOSE Routine 02/23/2023 6:24 AM EDT Personal history of nicotine dependence [facility] SCREENING DIGITAL Routine 07/06/2022 3:10 PM EST Encounter for screening mammogram for malignant neoplasm of breast COLONOSCOPY Routine 09/07/2021 [facility] DEXA AXIAL SKELETON Routine 07/04/2021 12:00 PM EST Encounter for screening for osteoporosis HEPATITIS C SCREENING Routine 06/04/2014 from Last 3 Months or Most Recently Relevant to Health Maintenance Results * External CT Report (12/24/2024) Anatomical Region Laterality Modality Computed Tomogra phy [facility] Onbase IMG CT PROCEDURES Final Result * Urine Albumin Creatinine Ratio (10/11/2023) Pathologist [facility] Urine Albumin Creatinine Ratio abstracted Result [facility] Provider HEALTH MAINTENANCE Final Result * Annual BMP Blood Test (10/11/2023) Pathologist [facility] Annual BMP Blood Test abstracted Result Counts include 234 beds at the [facility] HEALTH MAINTENANCE Final Result * Hemoglobin A1c (10/11/2023) Pathologist [facility] Hemoglobin A1C 6.1 <=6.5 % Blood Venous blood specimen / Unknown Result Counts include 234 beds at the [facility] LAB BLOOD ORDERABLES Lilliam l Result * Lipid panel (10/11/2023) Pathologist [facility] LDL/HDL Ratio 2 0 - 4 Triglycerides 77 0 - 150 mg/dL Cholesterol 187 0 - 200 mg/dL HDL 97 >=40 mg/dL LDL Cholesterol 75 0 - 100 mg/dL Blood Venous blood specimen / Unknown Result [facility] Provider LAB BLOOD ORDERABLES Lilliam l Result * CT LUNG SCREENING LOW DOSE (02/23/2023 6:24 AM EDT) Anatomical Region Laterality Modality Computed Tomogra phy 02/20/2023 3:31 PM EDT Narrative 02/23/2023 6:24 AM EDT [facility] Diagnostic Imaging Department [address] [place] [address] Patient: VIOLETAFARHANA /Age/Sex: 1955 - 67 - F Unit#: [id number] Location/Status: [facility] CLI Mnemonic/Ordering Site: [facility] Ordering Physician: JENNIFER VAZQUEZ MD CT [...] Procedure Note Ana Awad MD - 08/07/2023 [facility] Diagnostic Imaging Department [address] [place] [address] Patient: VIOLETAFARHANA /Age/Sex: 1955 - 67 - F Unit#: [id number] [facility]onic[facility]Ordering Site: [facility] Ordering Physician: JENNIFER VAZQUEZ MD CT Lung Screening Low Dose - 02/20/23 - 1531 Report Status:Signed Indication: Greater than 20 total [...] AM EST Narrative 07/06/2022 3:10 PM EST [facility] Diagnostic Imaging Department [address] [place] [address] Patient: FARHANA MCDANIEL /Age/Sex: 1955 - 66 - F Unit#: [id number] Location/Status: [facility]/REG CLI Mnemonic/Ordering Site: [facility] Ordering Physician: HILLARY HAYS MD [facility] Screening Digital - 07/06/22 - EXAM: Dilip Screening Digital EXAM DATE AND TIME: 07/06/2022 11:48 AM HISTORY: Screening. COMPARISON: 07/04/21, 02/11/16, 12/14/14 TECHNIQUE: CC and MLO views of both breasts were obtained using full field digital mammography. Bilateral digital breast tomosynthesis was performed in the MLO projection. Computer aided detection with Converged Access 7.2-H and Toywheel 3D 3.1 was employed. TISSUE DENSITY: b. [...] Routine screening mammogram BILATERAL in 1 year. 18972, 63491 3342F, 7025F Dictating Physician: NAFISA BROCK MD Electronically Signed by: NAFISA BROCK MD Dic Date/Time: 07/06/221509 Sign date/Time: 07/06/22 151 Procedure Note Nafisa Brock MD - 08/03/2023 [facility] Diagnostic Imaging Department [address] [place], [place] [address] Patient: FARHANA MCDANIEL /Age/Sex: 1955 - 66 - F Unit#: [id number] Location/Status: [facility]/REG CLI Mnemonic/Ordering Site: [facility] Ordering Physician: HILLARY HAYS MD [facility] Screening Digital - 07/06/22 - EXAM: [facility] Screening Digital EXAM DATE AND TIME: 07/06/2022 11:48 AM HISTORY: Screening. COMPARISON: 07/04/21, 02/11/16, 12/14/14 TECHNIQUE: CC and MLO views of both breasts were obtained using fullfield digital mammography. Bilateral digital breast tomosynthesis was performedin the MLO projection. Computer aided detection with Converged Access 7.2-H andToywheel 3D 3.1 was employed. TISSUE DENSITY: b. [...] Routine screening mammogram BILATERAL in 1 year. 03007, 87590 3342F, 7025F Dictating Physician: NAFISA BROCK MD Electronically Signed by: NAFISA BROCK MD Dic Date/Time: 07/06/22 1510 Sign date/Time: 07/06/22 1510 Hillary Hays MD IMG BI PROCEDURES Final Result * Colonoscopy (09/07/2021) Colonoscopy no interpretation , abstracted Anatomical Region Laterality Modality Other Historical Provider HEALTH MAINTENANCE Final Result * [facility] DEXA AXIAL SKELETON (07/04/2021 12:00 PM EST) Anatomical Region Laterality Modality Mammography 07/04/2021 11:0 4 AM EST Narrative 07/04/2021 12:00 PM EST [facility] Diagnostic Imaging Department [address] [place], [place] [address] Patient: FARHANA MCDANIEL /Age/Sex: 1955 - 65 - F Unit#: [id number] [facility] Ordering Physician: PEDRITO OZUNA [facility] Dexa Axial Skeleton - 07/04/21 - 6774 HISTORY: The patient is a 65-year-old postmenopausal [...] probability of hip fracture of 5.6%. Code 95406 Dictating Physician: MARY AMBROSE MD Electronically Signed by: MARY AMBROSE MD Dic Date/Time: 07/04/21 1159 Sign date/Time: 07/04/21 1200 Procedure Note Mary Ambrose MD - 06/21/2022 [facility] Diagnostic Imaging Department [address] [place] [address] Patient: FARHANA MCDANIEL./Age/Sex: 1955 - 65 - F Unit#: [id number] Location/[facility] Mnemonic/Ordering Site: [facility] Ordering Physician: PEDRITO OZUNA [facility] Dexa Axial Skeleton - 07/04/21 - 2854 HISTORY: The patient is a 65-year-old postmenopausal [...] density of the femurs bilaterally is 0.811 gm/dv0uggys is 81% of that of young normals and 92% of that of age matched controls.This yields a T-score of -1.6 and a Z-score of -0.6 which is diagnostic of osteopenia. IMPRESSION: 1. Osteoporosis. 2. FRAX analysis yields a 10-year probability of major osteoporoticfracture of 19.5% and a 10-year probability of hip fracture of 5.6%. Code 25399 Dictating Physician: MARY AMBROSE MD Electronically Signed by: MARY AMBROSE MD Dic Date/Time: 07/04/21 1159 Sign date/Time: 07/04/21 1200 Pedrito MONTOYA IMG BI PROCEDURES Final Result * Hepatitis C Screening (06/04/2014) Hepatitis C Screening abstracted Historical Provider HEALTH MAINTENANCE Final Result from Last 3 Months or Most Recently Relevant to Health Maintenance Insurance [facility] Care Teams Socket Puller Relationship Specialty Start Date End Date Hillary Hays MD [address] [place] [address] [phone] (work) PCP - General Internal Medicine 02/22/15
--- NOTE | 2024-12-24 14:03 | MHC.SL.IMP ---
Date of Plan of Treatment: 12/24/24 Onset of Symptoms/Illness: 06/25/24 Date Treatment Started: 12/24/24 Admitting Diagnosis: Dysphagia Primary Speech & Language Diagnosis: R13.12 Oropharyngeal Phase Dysphagia Reason for Today's Visit: 35319 Modified Barium Swallow Study Pre-evaluation Dietary Consistencies: Regular Pre-evaluation Liquid Consistency: Thin Pre-evaluation Medication Administration: Whole with Liquid Medical History: Modified Barium Swallow Study Fluoroscopic Evaluation of Swallowing Function CPT Code 59817 Evaluation Year: 2024 Reason for Study: Patient reporting difficulty swallowing. Referring Physician: Joana Molina DONOR CENTER TECHNICIAN Evaluating Clinician: Alma Delia Chong MA, CCC-INVOICING MACHINE OPERATOR Study Number: 1 Patient Name: Grace Sanders Status: Outpatient, Ambulatory Age: 69 Sex: Female Medical History Medical History (Updated 12/23/24 @ 09:20 by Prabha Gonzales MD) Coarse tremors Diabetes Surgical History History of surgical removal of pilonidal cyst History of subtotal thyroidectomy History of 2 sections Current (pre-evaluation) Intake/Diet: Route: PO Diet Grade: Regular Liquid Consistencies: Thin Pre-Study Functional Oral Intake Scale (FOIS): 7- Total oral intake with no restrictions Pain: None reported at time of study SUBJECTIVE: Patient is a 69 year old female referred for a modified barium swallow study at the recommendation of Speech Therapy. Patient was seen for a cognitive-linguistic evaluation last month, where she reported to the INVOICING MACHINE OPERATOR having trouble swallowing as well. Patient reports feeling food get stuck in her throat, one time requiring her daughter to perform the Heimlich maneuver. Patient says she continues to have multiple episodes a week and cuts her food into small pieces. She denies odynophagia. Note history of thyroidectomy. Oral Motor Exam Facial Symmetry: Symmetrical Mouth Occlusion: Normal Oral-Facial Teeth Characteristics: Partially Missing Dentures Oral-Facial Teeth Miscellaneous Observation: Upper dentures, some missing natural dentition on bottom jaw Oral-Facial Lip Pucker Description: Normal Oral-Facial Smile (Lips) Description: Normal Oral-Facial Puff Cheeks Description: Normal Tongue Size: Normal Is patient able to manage secretions?: Yes Food and Liquid Trials: Oral Impairment: Lip Closure: Did not test Oral Impairment: Tongue Control During Bolus Hold: 0=Cohesive bolus between tongue to palatal seal Oral Impairment: Bolus Preparation/Mastication: 1=Slow prolonged chewing/mashing with complete re-collection Oral Impairment: Bolus Transport/Lingual Motion: 0=Brisk tongue motion Oral Impairment: Oral Residue: 2=Residue collection on oral structures Oral Impairment:Initiation of Pharyngeal Swallow: 0=Bolus head at posterior angle of ramus (first hyoid excursion) Pharyngeal Impairment: Soft Palate Elevation: 0=No bolus between soft palate (SP)/pharyngeal wall (PW) Pharyngeal Impairment: Laryngeal Elevation: 1=Partial thyroid cartilage/arytenoids to epiglottic petiole movement Pharyngeal Impairment: Anterior Hyoid Excursion: 1=Partial anterior movement Pharyngeal Impairment: Epiglottic Movement: 0=Complete inversion Pharyngeal Impairment: Laryngeal Vestibular Closure:: 0=Complete: no air/contrast in laryngeal vestibule Pharyngeal Impairment: Pharyngeal Stripping Wave: 0=Present: complete Pharyngeal Impairment: Pharyngeal Contraction: Did not test Pharyngeal Impairment: Pharyngoesophageal Segment Openin=Complete distension and complete duration: no obstruction of flow Pharyngeal Impairment: Tongue Base (TB) Retraction: 0=No contrast between tongue base and posterior pharyngeal wall Pharyngeal Impairment: Pharyngeal Residue: 0=Complete pharyngeal clearance Pharyngeal Impairment: Esophageal Clearance Upright Position: Did not test Impressions and Recommendations Clinical Observations: OBJECTIVE: Time-out: performed at 10:45 Evaluation Start: 10:30; Stop: 10:35 Patient Positioning: Standing Viewing Planes: LATERAL ONLY Contrast: MBSImP? Standardized Protocol using commercially prepared, standardized Barium viscosities, including: Varibar? THIN LIQUID (40% w/v, <15 cps) , Varibar? PUDDING (40% w/v, <7501-1171 cps) , 1/2 Shortbread Cookie (1 x1 x.25 ) MBSImP ID: [id number] MBSImP Results: Lip closure for intraoral bolus containment could not be assessed due to logistical reasons not related to physiologic impairment. Tongue control during bolus hold maintained a cohesive bolus held between tongue to palate seal. Bolus preparation and mastication resulted in slow, prolonged chewing/mashing but with complete re-collection. Bolus transport/lingual motion was with brisk tongue motion. Oral residue was a collection on oral structures. Initiation of the pharyngeal swallow occurred as the bolus head reached the posterior angle of the mandibular ramus. Soft palate elevation resulted in no bolus between the soft palate and the pharyngeal wall. Laryngeal elevation was decreased, with partial superior movement of the thyroid cartilage/partial approximation of the arytenoids to the epiglottic petiole. Anterior hyoid excursion demonstrated partial anterior movement. Epiglottic movement resulted in complete inversion. Laryngeal vestibular closure was complete, as indicated by no air or contrast within the laryngeal vestibule at the height of the swallow. Pharyngeal stripping wave was present and complete. Pharyngeal contraction could not be determined due to logistical reasons not related to physiologic impairment. Pharyngoesophageal segment opening was completely distended for complete duration with no obstruction of bolus flow. Tongue base retraction allowed no contrast between the retracted tongue base and the posterior pharyngeal wall. Pharyngeal residue was not present. There was complete pharyngeal clearance. Esophageal clearance in the upright position could not be assessed due to logistical reasons not related to physiologic impairment. Oral Impairment Score: 3 (absence of score, component 1) Pharyngeal Impairment Score: 2 (absence of score, component 13) Esophageal Impairment Score: --- (absence of score, component 17) Laryngeal Penetration and Aspiration: Neither penetration nor aspiration was observed in today's study with Cookie, Pudding-thick, Thin. ASSESSMENT: Clinician Assessment: This exam was performed by the speech pathologist and the radiologist. Patient was standing for lateral view only. Patient was able to feed herself without difficulty and trialed the following consistencies: Thin liquid (via individual & sequential cup sips) Puree (mixture applesauce with barium pudding) Regular (Eleni Doone cookie coated in barium pudding) Good tongue control and timely AP transport with no premature posterior escape. Patient was observed to take small bites when consuming cookies. Mastication was slowed and prolonged, characterized by piece meal clearing. Mild residue coated the tongue and cleared with subsequent swallows. Timely pharyngeal swallow trigger. No evidence of nasopharyngeal reflux. Incomplete laryngeal vestibular closure with complete epiglottic inversion and complete laryngeal vestibular closure. No evidence of aspiration or penetration during this exam. Complete clearing of the valleculae and pyriform sinuses. The following compensatory strategies have not been used until today's study, but when employed, improved swallowing function: Additional Swallow(s) per Bolus decreased Oral Residue Liquid Intake Recommendation: Thin Liquid Intake Strategies: Small Sips Dietary Recommendations: Regular Medication Administration: Whole with Liquid Please contact the pharmacy regarding appropriate crushable or liquid drug formulations that are available whenever modified delivery is recommended. Compensatory Strategies Recommended: Sitting Upright (90 deg), Small Bites and Sips, Alternate Liquids/Solids, Rate of Ingestion Change Recommendation for Speech Therapy: NA:Typical Evaluation Text Comment: Intake Recommendations: Route: PO Diet Grade: Regular Liquid Consistencies: Thin Post-Study Functional Oral Intake Scale (FOIS): 7- Total oral intake with no restrictions No evidence of aspiration or penetration. Good oral and pharyngeal clearance. Therapy Recommendations: Patient reports she ?cuts [her] food up small? due to her history of choking. This exam revealed good airway protection and no evidence of aspiration or penetration. Patient does have some missing dentition and is recommended to sit upright when eating/drinking, chew her food well and alternate with sips of liquid. Speech Therapy is not warranted at this time, as her swallow is deemed functional in the oral and pharyngeal phases, based on observations made during this exam. Clinician - Supplemental, Miscellaneous Communication: It is important to note MBSS objective studies are snapshots in time and Patient function might vary with factors such as time of day or concomitant medical conditions. For this reason, the final treatment plan for this patient should rest with their medical care team. Additional recommendations should be considered with the totality of the Patient in mind. Thank for the opportunity to participate in the care of this patient. If you have any questions about the content of this report, please contact the [facility] at [facility]. Education: Education regarding findings from today's study and plans for therapy were provided to Patient only through Verbal Instruction. Understanding was expressed by the Patient only. Drop Shipment Clerk Clinician/Clinical Fellow: No Supervisory Statement: N/A Speech Language Pathologist: Alma Delia Chong M.A., CCC-INVOICING MACHINE OPERATOR
== END 2024-12-24 10:18 | disposition home or self-care (01) ==
LOC: HO.XRAY 10:17
PROVIDERS: PCP Internal Medicine; Visit Provider Nurse Practitioner Family
DX: R13.10 Dysphagia, unspecified (principal)
CPT/HCPCS: 74230; 92611

== ENCOUNTER → 2024-12-24 10:30 | Outpatient (BNV) | payer OTHER, SELFPAY | PROVIDERS: PCP Internal Medicine; Visit Provider Radiology Diagnostic Radiology | DX: R13.10 Dysphagia, unspecified (principal) | CPT/HCPCS: 74230 ==